=== PATIENT | female | born 1995 | race Hispanic/Latino ===

== ENCOUNTER 2021-08-27 11:40 | Emergency (ER) | payer SELFPAY ==
[2021-08-27] VITALS (9 sets, daily range): BP systolic 107–119; BP diastolic 64–68; PULSE 64–98; RESP 16–20; TEMP 36.3; O2SAT 96–99
--- NOTE | ~2021-08-27 | XR_ITS ---
EXAMINATION: XR chest 2V DATE: 08/27/2021 14:21 INDICATION: Cough. Chest congestion. TECHNIQUE: Frontal and lateral views of the chest were obtained. COMPARISON: None. FINDINGS: The chest demonstrates clear lungs without pneumonia, pleural effusion, or pneumothorax. Th e heart size is normal. IMPRESSION: 1. No acute cardiopulmonary disease. Reviewed, dictated and finalized at location A.
--- NOTE | ~2021-08-27 | CT_ITS ---
EXAMINATION: CTA chest PE protocol DATE: 08/27/2021 16:03 INDICATION: Shortness of breath and fatigue TECHNIQUE: Computed tomography (CT) pulmonary angiogram of the chest was performed with 100 mL Omnipa que-350 intravenous contrast. Additional 3D reconstructions utilizing coronal maximum intensity proje ction (MIP) were performed. Automated exposure control and iterative reconstruction technique were em ployed. The dose-length product was 519.63 mGy-cm. COMPARISON: None FINDINGS: Could contrast opacification of the pulmonary arteries. There is mild streak artifact from dense cont rast in the superior vena cava and right atrium. Mild scattered respiratory motion artifact which meza s not significantly limit evaluation. No pulmonary embolism. No pneumonia, pulmonary edema or pleural effusion. There are several small scattered regions of subsegmental air trapping which could be seen in the setting of small airway disease such as asthma. Heart size is normal. No pericardial effusion . Thoracic aorta is normal in caliber with no dissection. No pathologically enlarged thoracic lymphad enopathy. Diffuse hepatic steatosis. Bones are unremarkable. IMPRESSION: 1. No pulmonary embolism. 2. A few small scattered regions of subsegmental air trapping which could be seen in the setting of s mall airway disease such as asthma. Reviewed, dictated and finalized at location A. IMPRESSION: 1. No pulmonary embolism. 2. A few small scattered regions of subsegmental air trapping which could be se en in the setting of small airway disease such as asthma.
--- NOTE | 2021-08-27 14:01 | ECG_ITS ---
Measurements Intervals [place] Rate: 84 P: 28 GA: 165 QRS: 65 QRSD: 100 T: 39 QT: 378 QTc: 448 Interpretive Statements SINUS RHYTHM MINIMAL Q WAVES- INFERIOR LEADS BASELINE ARTIFACT- I, II, III BORDERLINE ECG Electronically Signed On 08-27-2021 14:19:38 CDT by Rj Carlson D.O.
[2021-08-27 14:25] LABS: Basophils Absolute Auto 0.1 K/mm3 (0.0-0.1); Basophils Percent Auto 0.6 % (0.2-1.2); Eosinophils Absolute Auto 1.5 K/mm3 (0-0.3); Eosinophils Percent Auto 9.8 % (0-4.4); Hematocrit 38.8 % (37.0-47.0); Immature Granulocyte Absolute 0.06 K/mm3 (0.00-0.031); Immature Granulocyte Percent A 0.4 % (0-0.5); Lymphocytes Absolute Auto 4.43 K/mm3 (0.9-3.2); Lymphocytes Percent Auto 28.3 % (18.3-44.2); Mean Corpuscular HGB Conc 33.5 g/dl (32-36); Mean Corpuscular Hemoglobin 29.5 pg (26-34); Mean Corpuscular Volume 88.2 fl (80-100); Mean Platelet Volume 10.2 fl (7.4-10.4); Monocytes Absolute Auto 1.1 K/mm3 (0.1-0.6); Monocytes Percent Auto 7.1 % (2.6-8.5); Neutrophils Absolute Auto 8.4 K/mm3 (1.3-6.7); Neutrophils Percent Auto 53.8 % (45.5-73.1); Platelet Count Result 358 k/mm3 (150-375); Red Cell Distribution Width 12.6 % (11.5-14.5); White Blood Count 15.6 K/mm3 (4.5-10.0)
[2021-08-27 14:33] LABS: Alanine Aminotransferase 76 U/L (4-35); Albumin Level 4.4 g/dL (3.5-5.1); Alkaline Phosphatase 95 U/L (38-126); Anion Gap 9 mmol/L (8-16); Aspartate Amino Transferase 50 U/L (14-36); Bilirubin,Total 0.4 mg/dL (0.2-1.3); Blood Urea Nitrogen 9 mg/dL (7-17); Calcium 9.3 mg/dL (8.4-10.2); Carbon Dioxide 25 mmol/L (22-30); Chloride 105 mmol/L (98-107); Estimated CRCL calculation 121 ml/min; Estimated Glomerular Filt Rate > 60; Glucose 110 mg/dL (65-110); Potassium 3.8 mmol/L (3.4-5.0); Sodium 139 mmol/L (137-145)
[2021-08-27] MEDS: IPRATROPIUM BR 0.02% INH SOLN 0.5 MG/2.5 ML VIAL INHALATION (15:09)
[2021-08-27] MEDS: ALBUTEROL SULFATE NEB 2.5 MG/0.5 ML INH 5 MG INHALATION ×2 (15:09→17:14)
[2021-08-27 16:06] LABS: Add Urine Microscopic? YES; Appearance Urine Cloudy (Clear); Bilirubin Urine Negative (Negative); Blood Urine Negative (Negative); Color Urine Yellow (Yellow); Glucose Urine UA Negative (Negative); Ketones Urine Negative (Negative); Leukocyte Esterase Ur Negative LEU/UL (Negative); Mucus Urine Rare /lpf; Nitrate Urine Negative (Negative); Protein Urine Negative (Negative); RBC Urine 0-2 /hpf (0-2); Specific Grav Ur 1.015 (1.001-1.035); Squamous Epithelial Cell Urine Moderate /hpf (Few); Urobilinogen Urine Negative mg/dL (<2.0)
--- NOTE | 2021-08-27 17:13 | ED.GENADULT ---
HPI - General Adult General Chief complaint: Weakness Stated complaint: fatigued x 2 months Time Seen by Provider: 08/27/21 13:42 History of Present Illness HPI narrative: Patient is a 25-year-old female who presents ER with shortness of breath and cough. Ongoing over the last 2 to 3 weeks. No fevers or chills or sweats. No chest pain or chest pressure. She becomes short of breath whenever she exerts herself and feels fatigued. Denies previous medical history. No known sick contacts. No loss of taste or smell. Denies weight gain or weight loss. Related Data Allergies Allergy/AdvReac Type Severity Reaction Status Date / Time No Known Allergies Allergy Verified 08/27/21 11:52 Review of Systems Review of Systems: All systems reviewed & are unremarkable except as noted in HPI and below Constitutional: Constitutional: Denies chills, Reports fatigue, Denies fever(s) and Reports weakness ENT: Denies nasal congestion and Denies sore throat Cardiovascular: Cardiovascular: Denies chest pain, Denies rapid heart rate and Denies radiating jaw, neck or arm pain Respiratory: Respiratory: Reports cough, Reports dyspnea and Denies wheezing Gastrointestinal: Gastrointestinal: Denies abdominal pain, Denies nausea and Denies vomiting PMFSH Past Medical History Medical History (Updated 08/27/21 @ 17:19 by Ulisses Nicole MD) Healthy female adult Surgical History Surgical History (Updated 08/27/21 @ 17:16 by Ulisses Nicole MD) No history of previous surgery Social History Social History (Updated 08/27/21 @ 17:16 by Ulisses Nicole MD) Smoking status: Never smoker Exam Narrative: GENERAL: Well-appearing, well-nourished, and in no acute distress. HEAD: Normocephalic, atraumatic. NECK: Supple. CHEST: Decreased air movement with frequent coughing. No respiratory distress. HEART: Regular rate and rhythm. Normal peripheral pulses. ABDOMEN: Soft, nontender, nondistended. EXTREMITIES: Normal range of motion. No edema. SKIN: Warm, dry, no rash. NEURO: Alert and oriented x3. PSYCH: Normal mood and affect. Course Course Emergency Course: Patient informed results. Feels improved after breathing treatment. Would like a second 1. Discussed treatment for asthma. Will provide with albuterol and steroids for home. Vital Signs Vital signs: Vital Signs Temperature 97.3 F L 08/27/21 11:48 Pulse Rate 85 08/27/21 11:48 Respiratory Rate 18 08/27/21 11:48 Blood Pressure 116/68 08/27/21 11:48 Pulse Oximetry 98 08/27/21 11:48 Temperature 97.3 F L 08/27/21 11:48 Pulse Rate 68 08/27/21 16:41 Respiratory Rate 20 08/27/21 16:41 Blood Pressure 107/68 08/27/21 16:41 Pulse Oximetry 98 08/27/21 16:41 Medical Decision Making Vital Signs Vital Signs: Vital Signs Temperature 97.3 F L 08/27/21 11:48 Pulse Rate 85 08/27/21 11:48 Respiratory Rate 18 08/27/21 11:48 Blood Pressure 116/68 08/27/21 11:48 Pulse Oximetry 98 08/27/21 11:48 Temperature 97.3 F L 08/27/21 11:48 Pulse Rate 68 08/27/21 16:41 Respiratory Rate 20 08/27/21 16:41 Blood Pressure 107/68 08/27/21 16:41 Pulse Oximetry 98 08/27/21 16:41 Lab Data Result diagrams: 08/27/21 14:10 08/27/21 14:10 Labs: Lab Results 08/27/21 08/27/21 08/27/21 Range/Units 14:10 14:10 14:10 WBC 15.6 H (4.5-10.0) K/mm3 RBC 4.40 (4.2-5.4) M/mm3 Hgb 13.0 (12.0-15.0) g/dL Hct 38.8 (37.0-47.0) % MCV 88.2 (80-100) fl MCH 29.5 (26-34) pg MCHC 33.5 (32-36) g/dl RDW 12.6 (11.5-14.5) % Plt Count 358 (150-375) k/mm3 MPV 10.2 (7.4-10.4) fl Immature Gran % (Auto) 0.4 (0-0.5) % Neut % (Auto) 53.8 (45.5-73.1) % Lymph % (Auto) 28.3 (18.3-44.2) % [place] % (Auto) 7.1 (2.6-8.5) % Eos % (Auto) 9.8 H (0-4.4) % Baso % (Auto) 0.6 (0.2-1.2) % Lymph # (Auto) 4.43 H (0.9-3.2) K/mm3 [place] # (Auto) 1.1 H (0.1-0.
== END 2021-08-27 18:03 | disposition home or self-care (01) ==
PROVIDERS: Emergency Provider Emergency Medicine
DX: J45.909 Unspecified asthma, uncomplicated (principal); R94.31 Abnormal electrocardiogram [ECG] [EKG]
CPT/HCPCS: 36415; 71046; 71275; 80053; 81001; 81025; 84443; 85025; 93005; 94640; 99284; Q9967